=== PATIENT | male | born 2000 | race Caucasian/White ===

== ENCOUNTER 2022-04-05 00:45 | Emergency (ER) | payer OTHER, SELFPAY ==
[2022-04-05 00:51] VITALS: BP 130/93; PULSE 75; RESP 18; TEMP 36.4; O2SAT 99
--- NOTE | 2022-04-05 01:04 | ED.SKABFB ---
HPI - Skin/Abscess/Foreign Bdy General Chief complaint: Skin/Abscess/Foreign Body Stated complaint: Work Injury Today Time Seen by Provider: 04/05/22 00:57 History of Present Illness HPI narrative: Patient is a 22-year-old [id number] male here for evaluation of a small abrasion to the ulnar aspect of his right little finger sustained while at work today. Patient states that his fingertip brushed against a piece of metal leading to an abrasion. Patient washed the area out immediately and covered it with antibiotic ointment and a bandaid. he denies significant pain or difficulty moving the finger. He is unsure of his last tetanus shot. Related Data Home Medications Medication Instructions Recorded Confirmed No Home Medications 04/05/22 04/05/22 Allergies Allergy/AdvReac Type Severity Reaction Status Date / Time No Known Allergies Allergy Verified 04/05/22 00:54 Review of Systems Review of Systems: Gen: Denies fevers or chills Eyes: Denies eye pain or visual change ENT: Denies congestion Respiratory: Denies shortness of breath or cough CV: Denies chest pain or palpitations GI: Denies abdominal pain nausea, emesis or diarrhea denies burning, urgency, frequency or hematuria Musculoskeletal: Denies back pain or muscle pain Neuro: Denies numbness, tingling, weakness or focal weakness Skin: reports abrasion to pinky Except as documented, all other systems reviewed and negative Exam Narrative: Gen: alert, oriented, no acute distress Eyes: EOMI, no icterus Pulm: Respirations even and unlabored, symmetric thorax expansion, no audible stridor or visible cyanosis CV: Regular rate per telemetry GI: No distension, no voluntary/involuntary guarding Neuro: AOx4, moves all extremities without apparent difficulty or weakness, follows commands MSK: FROM in right hand and fingers. Skin: patient has 2 mm abrasion to the ulnar aspect of his right 5th digit with no active bleeding, no nail bed involvement. Psych: Normal mood/affect, insight/judgement good, adequate fund of knowledge, recent/remote memory intact Course Vital Signs Vital signs: Vital Signs Temperature 97.6 F 04/05/22 00:51 Pulse Rate 75 04/05/22 00:51 Respiratory Rate 18 04/05/22 00:51 Blood Pressure 130/93 H 04/05/22 00:51 Pulse Oximetry 99 04/05/22 00:51 Oxygen Delivery Room Air 04/05/22 00:51 Temperature 97.6 F 04/05/22 00:51 Pulse Rate 75 04/05/22 00:51 Respiratory Rate 18 04/05/22 00:51 Blood Pressure 130/93 H 04/05/22 00:51 Pulse Oximetry 99 04/05/22 00:51 Oxygen Delivery Room Air 04/05/22 00:51 MDM - Skin/Abscess/Foreign Bdy MDM Narrative Medical decision making narrative: 22 year old male here for a very superficial abrasion to his little finger just adjacent to the nail but not involving the nailbed sustained while at work. On exam there is nothing to sew. Wound was irrigated and covered. His tetanus was updated. He was educated on wound gave and given return precautions. Discharge Plan Discharge Clinical Impression: Abrasion of right little finger Patient Disposition: Home, Self-Care Condition: Stable Instructions: Antibiotic Form, Abrasion (ED) Additional Instructions: Your tetanus was updated today. The wound does not appear like it needs stitches or closure. Please keep the wound clean dry and covered. Return to the emergency department if you cannot move the finger, you develop severe pain, you develop a fever of 100.4, or have other concerns. Prescriptions: No Action No Home Medications Follow-up/Referrals: UNKNOWN,DOCTOR [Primary Care Provider] -
[2022-04-05] MEDS: TETANUS,DIPHTHERIA,AC PERTUSSIS ADULT (0.5 ML) BOOSTRIX IM (01:08)
== END 2022-04-05 01:23 | disposition home or self-care (01) ==
LOC: ANHED 01:18
PROVIDERS: Emergency Provider Emergency Medicine
DX: S60.416A Abrasion of right little finger, initial encounter (principal); Z23 Encounter for immunization; W26.8XXA Contact with other sharp object(s), not elsewhere classified, initial encounter
CPT/HCPCS: 90471; 90715; 99282

== ENCOUNTER 2022-12-26 19:00 | Emergency (ER) | payer OTHER, SELFPAY ==
--- NOTE | ~2022-12-26 | CT_ITS ---
EXAMINATION: CT brain wo con DATE: 12/26/2022 20:17 INDICATION: Head trauma . TECHNIQUE: Computed tomography (CT) of the head was performed without intravenous contrast. The mA wa s adjusted according to patient size. Iterative reconstruction technique was employed. The dose-lengt h product was 605.33 mGy-cm. COMPARISON: None. FINDINGS: No acute intracranial hemorrhage or extra-axial fluid collection. No hydrocephalus, mass, or herniation. No acute ischemic infarct. Unremarkable dural venous sinus attenuation. No acute osseous abnormality. Bilateral maxillary polyps or retention cysts, the remaining aerated spaces are clear. IMPRESSION: No acute intracranial process. Reviewed, dictated and finalized at location K.
--- NOTE | ~2022-12-26 | CT_ITS ---
EXAMINATION: CT cervical spine wo con DATE: 12/26/2022 20:18 INDICATION: Head injury TECHNIQUE: Computed tomography (CT) of the cervical spine was performed without intravenous contrast. Automated exposure control and iterative reconstruction technique were employed. The dose-length pro duct was 217.86 mGy-cm. COMPARISON: None. FINDINGS: Vertebral Body Alignment: Intact. Mild reversal of the cervical lordosis centered at C5-6. Craniocervical and atlantoaxial alignment: No significant degenerative change. The dens is asymmetric ally positioned between the lateral masses (lateral atlantodental interval measures 2 mm on the right and 8 mm on the left). Uncovering of the right lateral mass of C2 by the leftward shift of the later al mass of C1. Slight overhang of the left C1 lateral mass over the lateral mass of C2. Normal atlant odental interval. Normal BDI. Osseous structures/fracture: No evidence of a lytic or blastic process in the visualized spine. No e vidence of acute fracture. . Cervical soft tissues: The paraspinal soft tissues planes are maintained. Degenerative changes: No significant degenerative changes. IMPRESSION: 1. No acute fracture detected in the cervical spine. 2. Abnormal alignment of the dens between the lateral masses of C1 and the lateral masses of C1 with respect to the lateral masses of C2. This may reflect acute or chronic ligamentous atlantoaxial injur y. Correlate with history of prior cervical trauma. Recommend conservative management and MR of the c ervical spine. Reviewed, dictated and finalized at location K. IMPRESSION: 1. No acute fracture detected in the cervical spine. 2. Abnormal alignment of the dens between the lateral masses of C1 and the late ral masses of C1 with respect to the lateral masses of C2. This may reflect acu te or chronic ligamentous atlantoaxial injury. Correlate with history of prior cervical trauma. Recommend conservative management and MR of the cervical spine .
[2022-12-26 19:01] VITALS: BP 116/83; PULSE 87; RESP 16; TEMP 36.8; O2SAT 99
--- NOTE | 2022-12-26 20:03 | ED.HEATRA ---
HPI - Head Injury General Chief complaint: Head Injury Stated complaint: concussion Time Seen by Provider: 12/26/22 19:51 Source: patient Mode of arrival: ambulatory Limitations: no limitations History of Present Illness HPI Narrative: 22 years old white male came to the emergency room with pain at the right side of his head. 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 Leaned on his head. He denies loss of consciousness, neck pain or other injuries. Complaining of seeing white for few seconds then dizzy. He declines the need for any pain medication at this time. Related Data Home Medications Medication Instructions Recorded Confirmed No Home Medications 04/05/22 04/05/22 Allergies Allergy/AdvReac Type Severity Reaction Status Date / Time No Known Allergies Allergy Verified 04/05/22 00:54 Review of Systems Review of Systems: All systems reviewed & are unremarkable except as noted in HPI and below Exam Narrative: General appearance: Well-developed, well-nourished Skin: Normal color Head: Normocephalic, mild tenderness to the right side of the head, parietal area, no hematoma, no laceration Eyes: Clear conjunctiva ENT: Oropharynx normal, ears normal, nose normal Neck: Supple, nontender, good range of motion Chest and respiratory: Airway patent, no respiratory distress, no accessory muscle use Musculoskeletal: Normal range of motion, nontender back Neurologic: Alert and oriented ?3, [employer] is normal as tested, no gross motor deficit Course Reevaluation(s) Reevaluation #1: No new changes compared to on arrival to the emergency room Date: 12/26/22 Time: 21:16 Vital Signs Vital signs: Vital Signs Temperature 36.8 C 12/26/22 19:01 Pulse Rate 87 12/26/22 19:01 Respiratory Rate 16 12/26/22 19:01 Blood Pressure 116/83 12/26/22 19:01 Pulse Oximetry 99 12/26/22 19:01 Oxygen Delivery Room Air 12/26/22 19:01 Temperature 36.8 C 12/26/22 19:01 Pulse Rate 87 12/26/22 19:01 Respiratory Rate 16 12/26/22 19:01 Blood Pressure 116/83 12/26/22 19:01 Pulse Oximetry 99 12/26/22 19:01 Oxygen Delivery Room Air 12/26/22 19:11 MDM - Head Injury MDM Narrative Medical decision making narrative: CT head and CT cervical spine showed no acute abnormalities. Patient discharged with scalp contusion, Differential Diagnosis Differential diagnosis: Likely concussion without loss of consciousness, closed head injury and subdural hematoma Imaging Data Radiologist's impression: Impressions Head CT 12/26/22 20:19 IMPRESSION: No acute intracranial process. Cervical Spine CT 12/26/22 20:59 IMPRESSION: 1. No acute fracture detected in the cervical spine. 2. Abnormal alignment of the dens between the lateral masses of C1 and the lateral masses of C1 with respect to the lateral masses of C2. This may reflect acute or chronic ligamentous atlantoaxial injury. Correlate with history of prior cervical trauma. Recommend conservative management and MR of the cervical spine. Critical Care Time Critical Care Time Critical Care Time: No Discharge Plan Discharge Clinical Impression: Closed head injury Qualifiers: Encounter type: initial encounter Qualified Code(s): S09.90XA - Unspecified injury of head, initial encounter Patient Disposition: Home, Self-Care Condition: Stable Instructions: Head Injury (ED) Additional Instructions: Return if symptoms are worsening , call your family physician for appointment, take Tylenol as as needed for aches and pain, continue home medications., Take ibu
== END 2022-12-26 21:54 | disposition home or self-care (01) ==
PROVIDERS: Emergency Provider Emergency Medicine
DX: S09.90XA Unspecified injury of head, initial encounter (principal); W22.8XXA Striking against or struck by other objects, initial encounter
CPT/HCPCS: 70450; 72125; 99284

== ENCOUNTER 2025-01-29 20:23 | Emergency (ER) | payer SELFPAY ==
--- NOTE | ~2025-01-29 | CT_ITS ---
EXAMINATION: CT brain wo con DATE: 01/29/2025 20:55 INDICATION: CASON with L side numbness now resolved . TECHNIQUE: Computed tomography (CT) of the head was performed without intravenous contrast. The mA wa s adjusted according to patient size. Iterative reconstruction technique was employed. The dose-lengt h product was 681.00 mGy-cm. COMPARISON: 12/26/2022. FINDINGS: No acute intracranial hemorrhage or extra-axial fluid collection. No hydrocephalus, mass, or herniation. No acute ischemic infarct. Unremarkable dural venous sinus attenuation. No acute osseous abnormality. The aerated spaces are clear. IMPRESSION: No acute intracranial process. Reviewed, dictated and finalized at location K.
--- OUTSIDE RECORDS SUMMARY | 2025-01-29 20:26 | XMS_ITS | Patient Health Record ---
Author Organization [facility] [employer] 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 Role Phone Mavis Liang Unavailable [phone] Reason For Referral No Information Immunizations Vaccine Route Administration Date Status Comme nts DTaP Unknown 1999 Administered DTaP Unknown 1999 Administered DTaP Unknown 1999 Administered DTaP Unknown 07/08/2000 Administered DTaP Unknown 01/09/2005 Administered Hep A, unspecified formulation Unknown 04/04/2009 Admin istered Hep A, unspecified formulation Unknown 04/09/2010 Admin istered Hep B, unspecified formulation Unknown 1999 Admin istered Hep B, unspecified formulation Unknown 1999 Admin istered Hep B, unspecified formulation Unknown 1999 Admin istered Hib, unspecified formulation Unknown 1999 Adminis tered Hib, unspecified formulation Unknown 1999 Adminis tered Hib, unspecified formulation Unknown 1999 Adminis tered Hib, unspecified formulation Unknown 04/10/2001 Adminis tered HPV (human papillomavirus), quadrivalent, 3 dose schedule Unknown 04/09/2010 Administered HPV (human papillomavirus), quadrivalent, 3 dose schedule Unknown 04/18/2011 Administered HPV (human papillomavirus), quadrivalent, 3 dose schedule Unknown 03/21/2014 Administered Influenza virus vaccine, quadrivalent (IIV4), split virus, 0.25 mL dosage Unknown 04/16/2019 Administered Influenza, injectable, MDCK, preservative free Unknown 04/16/2019 Administered Meningococcal MCV4P Unknown 04/09/2010 Administered Meningococcal MCV4P Unknown 03/20/2017 Administered MMR Unknown 03/20/2000 Administered MMR Unknown 01/09/2005 Administered Novel Lfzaexrne-[id number], preservative free Unknown 03/20/2017 Administered OPV Unknown 1999 Administered OPV Unknown 1999 Administered OPV Unknown 1999 Administered OPV Unknown 01/09/2005 Administered Pneumococcal conjugate PCV 13 Unknown 1999 Admini stered Pneumococcal conjugate PCV 13 Unknown 1999 Admini stered Pneumococcal conjugate PCV 13 Unknown 03/20/2000 Admini stered Tdap Unknown 04/04/2009 Administered Varicella Unknown 03/20/2000 Administered Varicella Unknown 04/04/2009 Administered Plan Of Treatment No Information Insurance Providers Payer Name Payer Address Payer Phone Subscriber Number Group Number Insured Name Patient Relationship to Insured Coverage Start Date Coverage End Date [facility] [employer] [address] [place] [address] [id number] CAROLINA HENLEY Self - patient is the insured
[2025-01-29 20:48] VITALS: BP 112/77; PULSE 76; RESP 18; TEMP 36.8; O2SAT 98
[2025-01-29 20:48] LABS: Hematocrit 40.0 % (42.0-52.0); Hemoglobin 13.7 g/dL (14.0-18.0); Immature Granulocyte Percent A 0.2 % (0-0.5); Lymphocytes Absolute Auto 1.67 K/mm3 (0.9-3.2); Mean Corpuscular HGB Conc 34.3 g/dl (32-36); Mean Corpuscular Hemoglobin 32.5 pg (26-34); Mean Corpuscular Volume 94.8 fl (80-100); Nucleated Red Blood Cells Absolute Auto 0.000 K/mm3 (0.0-0.012); Nucleated Red Blood Cells Perc 0.0 % (0.0-0.2); Platelet Count Result 227 k/mm3 (150-375); Red Blood Count 4.22 M/mm3 (4.6-6.20); White Blood Count 4.9 K/mm3 (4.5-10.0)
[2025-01-29 21:10] LABS: Alanine Aminotransferase 17 U/L (6-50); Albumin Level 4.4 g/dL (3.5-5.1); Alkaline Phosphatase 49 U/L (38-126); Anion Gap 6 mmol/L (4-12); Aspartate Amino Transferase 26 U/L (17-59); Bilirubin,Total 1.0 mg/dL (0.2-1.3); Blood Urea Nitrogen 9 mg/dL (9-20); Calcium 9.2 mg/dL (8.4-10.2); Carbon Dioxide 28 mmol/L (22-30); Chloride 99 mmol/L (98-107); Estimated CRCL calculation 134 ml/min; Estimated Glomerular Filt Rate > 60; Glucose 104 mg/dL (65-110); Potassium 3.8 mmol/L (3.4-5.0); Sodium 133 mmol/L (137-145); Total Protein 7.0 g/dL (6.3-8.2)
--- NOTE | 2025-01-30 02:19 | ED.NEUROSD ---
HPI - Neuro Symptoms/Deficit General Chief Complaint: Neuro Symptoms/Deficit Stated Complaint: numbness Time Seen by Provider: 01/29/25 20:29 History of Present Illness HPI Narrative: Earlier today patient started noticing what looks like TV static to his left eye, started having a pressure/headache, and felt like his entire mouth was numb and his left hand felt numb, and both arms felt weak and heavy. After about an hour, symptoms all resolved other than he has a dull headache. He does have history of migraines. No prior history of CVA or any other medical issues, no family history of CVA. Related Data Home Medications ?Medication ?Instructions ?Recorded ?Confirmed ?Last Taken ?Type No Home Medications 04/05/22 04/05/22 Unknown History Allergies Allergy/AdvReac Type Severity Reaction Status Date / Time hornet venom Allergy Unknown Unknown Verified 01/29/25 20:54 venom-honey bee Allergy Unknown Unknown Verified 01/29/25 20:54 venom-wasp Allergy Unknown Unknown Verified 01/29/25 20:54 Review of Systems Review of Systems: All systems reviewed & are unremarkable except as noted in HPI and below [facility] Family History Family History (System 01/09/23 @ 14:45 by Maxi Duran) Father Family history of hypercholesterolemia Family history of multiple sclerosis Mother Family history of elevated blood lipids Social History Social History (System 01/09/23 @ 14:45 by Maxi Duran) Smoking status: Never smoker Alcohol intake: never Exam Narrative: EXAMINATION OF ORGAN SYSTEMS/BODY AREAS: Constitutional: Vital signs per nursing GENERAL:[No acute distress, non-toxic appearing.] HEAD: Normal with no signs of head trauma. EYES: EOMI, conjunctiva normal, VA and visual reyes intact ENT: Hearing grossly intact LUNGS: Nonlabored breathing. HEART: [Regular rate and rhythm] ABD: [Soft], [nontender to palpation] EXT: Normal range of motion SKIN: [No rashes or lesions.] NEURO: [Alert and oriented x 3. No focal sensory or strength deficits.] Speak with clear speech, ambulating with normal steady gait. PSYCH: Slightly anxious affect Course Vital Signs Vital signs: Vital Signs Temperature 98.2 F 01/29/25 20:48 Pulse Rate 76 01/29/25 20:48 Respiratory Rate 18 01/29/25 20:48 Blood Pressure 112/77 01/29/25 20:48 Pulse Oximetry 98 01/29/25 20:48 Oxygen Delivery Room Air 01/29/25 20:48 Temperature 98.2 F 01/29/25 20:48 Pulse Rate 76 01/29/25 20:48 Respiratory Rate 18 01/29/25 20:48 Blood Pressure 112/77 01/29/25 20:48 Pulse Oximetry 98 01/29/25 20:48 Oxygen Delivery Room Air 01/29/25 20:48 MDM - Neuro Symptoms/Deficit MDM Narrative Medical decision making narrative: Patient presents here with episode of static in his left eye then some tingling to his L arm, heaviness to bilateral arms, and numbness to mouth; now all resolved other than a slight headache. Has history of migraines in the past. He is very well-appearing here, neurologically intact. No facial droop, has normal speech, ambulating with normal gait, normal sensation and motor strength bilaterally. CT brain here unremarkable, labs unremarkable. On my re-evaluation, he is symptom-free, headache resolved. Normal neurologic exam here. Discussion with patient, he feels comfortable with outpatient management/close follow-up with Neurology and strict return precautions, overall I did discuss with patient have low concern for this being CVA given his young age, no risk factors, and his symptoms being bilateral; also I suspect migraine given his symptoms. Lab Data 01/29/25 20:40 01/29/25 20:40 Labs: Lab Results 01/29/25 Range/Units 20:40 WBC 4.9 (4.5-10.0) K/mm3 RBC 4.22 L (4.6-6.20) M/mm3 Hgb 13.7 L (14.0-18.0) g/dL Hct 40.0 L (42.0-52.0) % MCV 94.8 (80-100) fl MCH 32.5 (26-34) pg MCHC 34.3 (32-36) g/dl RDW 12.0 (11.5-14.5) % Plt Count 227 (150-375) k/mm3 MPV 10.2 (7.4-10.4) fl Immature Gran % (Auto) 0.2 (0-0.5) % Neut % (Auto) 54.2 (45.5-73.1) % Lymph % (Auto) 34.0 (18.3-44.2) % [place] % (Auto) 9.4 H (2.6-8.5) % Eos % (Auto) 1.8 (0-4.4) % Baso % (Auto) 0.4 (0.2-1.2) % Lymph # (Auto) 1.67 (0.9-3.2) K/mm3 [place] # (Auto) 0.5 (0.1-0.6) K/mm3 Eos # (Auto) 0.1 (0-0.3) K/mm3 Baso # (Auto) 0.0 (0.0-0.1) K/mm3 Abs Immat Gran (auto) 0.01 (0.00-0.031) K/mm3 Absolute Neuts (auto) 2.7 (1.3-6.7) K/mm3 Absolute Nucleated RBC 0.000 (0.0-0.012) K/mm3 Nucleated RBC % 0.0 (0.0-0.2) % Sodium 133 L (137-145) mmol/L Potassium 3.8 (3.4-5.0) mmol/L Chloride 99 (98-107) mmol/L Carbon Dioxide 28 (22-30) mmol/L Anion Gap 6 (4-12) mmol/L BUN 9 (9-20) mg/dL Creatinine 0.56 L (0.7-1.3) mg/dL Estim Creat Clear Calc 134 ml/min Estimated GFR > 60 (59 - ) Glucose 104 (65-110) mg/dL Calcium 9.2 (8.4-10.2) mg/dL Total Bilirubin 1.0 (0.2-1.3) mg/dL AST 26 (17-59) U/L ALT 17 (6-50) U/L Alkaline Phosphatase 49 (38-126) U/L Total Protein 7.0 (6.3-8.2) g/dL Albumin 4.4 (3.5-5.1) g/dL Discharge Plan Discharge Clinical Impression: Ocular migraine Patient Disposition: Home Condition: Stable Instructions: Ocular Migraine (ED) Additional Instructions: Please follow up with neurology; if your symptoms return especially any new numbness/weakness, difficulty with speech or walking, vision changes, or anything else concerning, please come back to the ER immediately. Patient Language: Honduran Prescriptions: No Action No Home Medications Follow-up/Referrals: Lois Hardy MD [Physician] - 2 Days PHYSICIAN NOT ON STAFF,NONSTAFF [Primary Care Provider] -
== END 2025-01-29 22:47 | disposition home or self-care (01) ==
PROVIDERS: Emergency Provider Emergency Medicine
DX: G43.B0 Ophthalmoplegic migraine, not intractable (principal)
CPT/HCPCS: 36415; 70450; 80053; 82948; 85025; 99284